=== PATIENT | male | born 1970 | race Caucasian/White ===

== ENCOUNTER → 2018-06-23 | Outpatient (CLI) | payer OTHER ==
[~2018-06-23] MED LIST: AMOCLA875 PO; CEPH500 PO; FLUT.05NI; IBUP600 PO; IBUP800; IBUP800 PO; OTC PAIN MEDS; OXYACE5T PO; RXHYDACE PO; TRAM50 PO
== END | disposition home or self-care (01) ==
LOC: LAB 14:19 → LAB SHORT 14:19
DX: Z51.81 Encounter for therapeutic drug level monitoring (principal); M51.36 Other intervertebral disc degeneration, lumbar region; Z79.899 Other long term (current) drug therapy
CPT/HCPCS: G0480

== ENCOUNTER 2019-09-24 21:54 | Emergency (ER) | payer OTHER | END 2019-09-24 23:50 | disposition home or self-care (01) | DX: F15.129 Other stimulant abuse with intoxication, unspecified (principal) ==

== ENCOUNTER 2020-03-19 22:34 | Emergency (ER) | payer OTHER ==
[~2020-03-19] VITALS: Ht 185.4 cm; Wt 153.3 kg
[2020-03-19] MEDS ORDERED: CLON.1 PO (22:53)
[2020-03-19] MEDS ORDERED: GABA300 (22:53)
[2020-03-19] MEDS ORDERED: Norco 7.5-3251 EACH PO (22:54)
[2020-03-19] MEDS ORDERED: LOMAIRA8 MG PO (22:55)
== END 2020-03-20 00:01 | disposition home or self-care (01) ==
LOC: ER 22:34
DX: S01.01XA Laceration without foreign body of scalp, initial encounter (principal); M54.2 Cervicalgia; Z79.899 Other long term (current) drug therapy; Y08.89XA Assault by other specified means, initial encounter
CPT/HCPCS: 12002; 99283-25

== ENCOUNTER 2020-05-14 12:25 | Emergency (ER) | payer OTHER ==
[~2020-05-14] VITALS: Ht 182.9 cm; Wt 149.7 kg
[~2020-05-14 12:25] MED LIST changes: +CLON.1 PO; +GABA300; +LOMAIRA8 MG PO; +Norco 7.5-3251 EACH PO
[2020-05-14 12:57] LABS: BASOPHILS ABSOLUTE AUTO 0.06 K/mm3 (0.00-0.23); BASOPHILS PERCENT AUTO 1 % (0-2); EOSINOPHILS PERCENT AUTO 1 % (0-6); Hematocrit 46.4 % (37.0-53.0); Hemoglobin 15.8 g/dL (13.5-17.5); IMMATURE GRAN ABSOLUTE AUTO 0.03 K/mm3 (0.00-0.10); IMMATURE GRAN PERCENT AUTO 0 % (0-1); LYMPHOCYTES ABSOLUTE AUTO 1.66 K/mm3 (0.84-5.20); LYMPHOCYTES PERCENT AUTO 14 % (21-46); MONOCYTES ABSOLUTE AUTO 0.84 K/mm3 (0.16-1.47); MONOCYTES PERCENT AUTO 7 % (4-13); Mean Corpuscular HGB 31.1 pg (26.0-34.0); Mean Corpuscular HGB Conc 34.1 g/dL (31.5-36.5); Mean Corpuscular Volume 91 fL (80-100); NEUTROPHILS ABSOLUTE AUTO 9.25 K/mm3 (1.96-9.15); NEUTROPHILS PERCENT AUTO 78 % (41-73); Platelet Count 297 K/mm3 (150-400); RDW Coefficient Variation 11.9 % (11.7-14.2); RDW Standard Deviation 40.1 fL (35.1-46.3); Red Blood Cell Count 5.08 M/mm3 (4.30-5.90); White Blood Cell Count 11.94 K/mm3 (4.00-11.30)
[2020-05-14 13:00] LABS: Source, Urine Clean Catch
[2020-05-14 13:14] LABS: Alanine Aminotransfer (ALT/SGP 71 U/L (12-78); Albumin, Blood 3.8 g/dL (3.4-5.0); Alk Phos 82 U/L (50-136); Anion Gap 5 mmol/L (6-16); Aspartate Aminotrans (AST/SGOT 27 U/L (12-37); Bilirubin, Total 0.6 mg/dL (0.1-1.0); Blood Urea Nitrogen 16 mg/dL (8-24); Bun/Creatinine Ratio 22.1 (12.0-20.0); CO2, Blood 25 mmol/L (21-32); Chloride, Blood 107 mmol/L (98-108); Creatinine, Blood 0.72 mg/dL (0.60-1.20); Globulin, Blood 3.8 g/dL (2.2-4.0); Glomerular Filtration Rate >60 (60-); Glucose, Blood 134 mg/dL (70-99); Potassium, Blood 4.2 mmol/L (3.5-5.5); Sodium, Blood 137 mmol/L (136-145); Total Protein, Blood 7.6 g/dL (6.4-8.2)
[2020-05-14 13:14] LABS: Appearance, Urine Clear (Clear); Bilirubin, Urine Neg (Neg); Blood, Urine Neg (Neg); Color, Urine Yellow (P-Yellow); Glucose Qualitative, Urine Neg (Neg); Ketones, Urine Neg (Neg); Leukocyte Esterase, Urine Neg (Neg); Nitrite, Urine Neg (Neg); Protein, Urine Neg (Neg); Specific Gravity, Urine 1.015 (1.003-1.022); Urobilinogen, Urine NORM (Normal)
== END 2020-05-14 17:00 | disposition home or self-care (01) ==
LOC: ER 12:25
PROVIDERS: Emergency Medicine
DX: R10.9 Unspecified abdominal pain (principal); Z79.899 Other long term (current) drug therapy
CPT/HCPCS: 36415; 74176; 80053; 81003; 83690; 85025; 96374; 96375; 99284-25; J1885; J2405

== ENCOUNTER 2025-02-26 02:37 | Emergency (ER) | payer OTHER ==
[~2025-02-26] VITALS: Ht 185.4 cm; Wt 120.2 kg
[2025-02-26 02:51] VITALS: BP 154/98
[2025-02-26] MEDS ORDERED: Ketorolac Tromethamine 15mg Vial IM ONE (04:55)
[2025-02-26] MEDS ORDERED: Ibuprofen600 MG PO (04:59)
== END 2025-02-26 05:21 | disposition home or self-care (01) ==
LOC: ER 02:37
DX: R51.9 Headache, unspecified (principal); H92.01 Otalgia, right ear; Z79.899 Other long term (current) drug therapy
CPT/HCPCS: 96372; 99282-25; J1885